=== PATIENT | female | born 1965 | race Two or more races ===

== ENCOUNTER → 2025-03-26 | Outpatient (CLI) | payer MEDICARE, MEDICAID, SELFPAY ==
--- NOTE | 2025-03-26 11:30 | XR_ITS ---
Examination: Retroperitoneal ultrasound, complete Technique: Multiple high resolution grayscale images of the retroperitoneum obtained, including kidneys and bladder. Exam date and time:March 26, 2025 1152 hours INDICATIONS: Chronic kidney disease diagnosis years FINDINGS: Right kidney 12 8 cm cortex 1.5 cm Left kidney 13.2 cm renal cortex 1.9 cm No hydronephrosis or renal calculi No bladder mass or bladder calculi, bladder prevoid volume 182 cc IMPRESSION: Mild bilateral renal parenchymal scar formation
== END | disposition home or self-care (01) ==
PROVIDERS: PCP Physician Assistant; Referring Provider Physician Assistant; Visit Provider Physician Assistant
DX: N28.89 Other specified disorders of kidney and ureter (principal)
CPT/HCPCS: 76770